=== PATIENT | male | born 1990 | race African-American/Black ===

== ENCOUNTER 2016-11-30 13:03 | Inpatient (IN) | payer SELFPAY ==
[~2016-11-30] VITALS: Ht 167.6 cm; Wt 59.4 kg
[2016-11-30] MEDS ORDERED: VNTHFA/IN INH (14:09)
[2016-11-30 14:39] LABS: BASO % 0.1 %; BASO ABS # 0.02 K/uL (0-0.2); COMPLETE YES; HEMATOCRIT 55.7 % (42-52); IG% 0.4 %; LYMPH % 12.4 %; LYMPH ABS # 2.25 K/uL (1.2-3.4); MEAN CELL VOLUME 87.9 fL (80-100); MEAN CORPUSCULAR HEMOGLOBIN 31.9 pg (25-34); MEAN CORPUSCULAR HGB CONC 36.3 g/dl (32-36); MEAN PLATELET VOLUME 11.3 fL (7.4-10.4); MONO % 9.9 %; NEUT % 77.2 %; PLATELET COUNT 322 K/uL (130-400); RED BLOOD COUNT 6.34 M/uL (4.7-6.1); WHITE BLOOD COUNT 18.17 K/uL (4.8-10.8)
[2016-11-30] MEDS ORDERED: ONDANSETRON INJ 2 MG/ML 2 ML VIAL IV STA (14:45)
[2016-11-30] MEDS ORDERED: KETOROLAC TROMETHAMINE 30 MG/ML VIAL IV STA (14:45)
[2016-11-30] MEDS ORDERED: SODIUM CHLORIDE 0.9% 1000ML 2,000 ML IV STA (14:45)
[2016-11-30 14:48] LABS: BUN/CREATININE RATIO 9.9 (10-20); CALCIUM 10.3 mg/dl (8.5-10.1); CREATININE 3.8 mg/dl (0.60-1.40); POTASSIUM 3.4 mmol/L (3.5-5.1)
--- NOTE | 2016-11-30 16:02 | DIAGNOSTIC IMAGING REPORT ---
ABDOMEN 2VIEW W/PA CHEST RTN CLINICAL HISTORY: abd pain pain COMPARISON STUDY: No previous studies for comparison. FINDINGS: The soft tissues, psoas shadows, renal outlines and intestinal gas pattern appear normal. There is no evidence for bowel obstruction. There is no evidence for free intraperitoneal air. No abnormal abdominal calcifications are seen. A frontal view of the chest was performed and is unremarkable. There are several pelvic vascular calcifications. IMPRESSION: Normal study. Electronically signed by: Lyle Roberto M.D. 11/30/2016 4:01 PM Dictated Date/Time: 11/30/2016 4:00 PM
[2016-11-30 16:39] LABS: MANUAL MICROSCOPIC REQUIRED? YES; URINE APPEARANCE CLEAR (CLEAR); URINE BILIRUBIN NEG (NEG); URINE COLOR YELLOW; URINE NITRITE NEG (NEG); URINE PH 5.5 (4.5-7.5); URINE SPECIFIC GRAVITY >= 1.030 (1.000-1.030); UROBILINOGEN NEG (NEG)
[2016-11-30 16:46] LABS: REVIEW REQ? NO
[2016-11-30 16:54] LABS: URINE BACTERIA 1+ (NEG)
[2016-11-30 16:55] LABS: ZZUR CULT IF INDIC CLEAN CATCH YES
[2016-11-30] MEDS ORDERED: ONDANSETRON INJ 2 MG/ML 2 ML VIAL IV PRN (17:00)
[2016-11-30] MEDS ORDERED: ALBUTEROL HFA 8 GM INHALER INH PRN (17:00)
[2016-11-30 17:50] VITALS: O2SAT 98; Ht 167.6 cm; Wt 59.4 kg
--- NOTE | 2016-11-30 18:00 | History and Physical ---
History & Physical Date & Time of Service: Nov 30, 2016 at 17:47 Chief Complaint: Vomiting Primary Care Physician: No Doctor, Assigned History of Present Illness Source: patient, hospital records Patient is a 26 y/o male with a h/o mild intermittent asthma who presents for evaluation of vomiting. Patient notes vomiting for the past 3 days, stating that he has been unable to keep anything down. He did have some abdominal cramping at the onset of symptoms, but denies any abdominal pain currently. He denies any hematemesis or diarrhea. He denies any dysuria or gross hematuria. He notes that his girlfriend's children had been vomiting. Patient denies any h/ o kidney disease or other medical problems. Patient denies NSAID usage. Patient does smoke daily marijuana but denies other drug use. In the ED, labs were notable for a creatinine of 3.8 and microscopic hematuria. Patient was given IVF's and Zofran. Past Medical/Surgical History Medical Problems: (1) Asthma Status: Chronic Family History Patient reports no known family medical history. Social History Smoking Status: Current Every Day Smoker (1 ppd) Drug Use: marijuana Marital Status: in relationship Allergies Coded Allergies: No Known Allergies (Unverified , 11/30/16) Home Medications Scheduled PRN Albuterol Hfa (Ventolin Hfa), 2-4 PUFFS INH Q6H PRN for SOB/Wheezing Review of Systems Constitutional- +fevers and chills Eyes- denies sudden vision changes ENT- denies sore throat or congestion Pulmonary- denies SOB or cough Cardiac- denies chest pain or palpitations GI- denies abdominal pain, diarrhea; +nausea and vomiting - denies dysuria or hematuria Musculoskeletal- denies joint pain or swelling Dermatologic- denies rash or bruising Neuro- denies weakness, numbness or tingling Psych- denies depression or anxiety . Physical Exam Vital Signs Date Time Temp Pulse Resp B/P Pulse Ox O2 Delivery O2 Flow Rate FiO2 11/30/16 17:44 79 16 143/85 98 Room Air 11/30/16 15:46 84 18 132/92 97 Room Air 11/30/16 13:12 36.9 112 18 122/90 97 Room Air General- awake; alert; NAD Eyes- EOMI; no scleral icterus ENT- dry mucous membranes Neck- no stridor; trachea midline Lungs- CTA bilaterally; no wheezes/crackles Heart- RRR; no m/r/g Abdomen- soft; NTND; nBS Back- no gross abnormalities Extremities- no c/c/e; no deformity Neuro- no focal deficits Skin- no appreciable rash or bruise . Diagnostics Laboratory Results Results Past 24 Hours Test 11/30/16 14:14 11/30/16 16:30 Range/Units White Blood Count 18.17 4.8-10.8 K/uL Red Blood Count 6.34 4.7-6.1 M/uL Hemoglobin 20.2 14.0-18.0 g/dL Hematocrit 55.7 42-52 % Mean Corpuscular Volume 87.9 80-100 fL Mean Corpuscular Hemoglobin 31.9 25-34 pg Mean Corpuscular Hemoglobin Concent 36.3 32-36 g/dl Platelet Count 322 130-400 K/uL Mean Platelet Volume 11.3 7.4-10.4 fL Neutrophils (%) (Auto) 77.2 % Lymphocytes (%) (Auto) 12.4 % Monocytes (%) (Auto) 9.9 % Eosinophils (%) (Auto) 0.0 % Basophils (%) (Auto) 0.1 % Neutrophils # (Auto) 14.02 1.4-6.5 K/uL Lymphocytes # (Auto) 2.25 1.2-3.4 K/uL Monocytes # (Auto) 1.80 0.11-0.59 K/uL Eosinophils # (Auto) 0.00 0-0.5 K/uL Basophils # (Auto) 0.02 0-0.2 K/uL RDW Standard Deviation 42.8 36.4-46.3 fL RDW Coefficient of Variation 13.3 11.5-14.5 % Immature Granulocyte % (Auto) 0.4 % Immature Granulocyte # (Auto) 0.08 0.00-0.02 K/uL Sodium Level 138 136-145 mmol/L Potassium Level 3.4 3.5-5.1 mmol/L Chloride Level 94 98-107 mmol/L Carbon Dioxide Level 27 21-32 mmol/L Anion Gap 17.0 3-11 mmol/L Blood Urea Nitrogen 38 7-18 mg/dl Creatinine 3.80 0.60-1.40 mg/dl Est Creatinine Clear Calc Drug Dose 24.8 ml/min Estimated GFR () 23.9 Estimated GFR (Non- 20.6 BUN/Creatinine Ratio 9.9 10-20 Random Glucose 121 70-99 mg/dl Calcium Level 10.3 8.5-10.1 mg/dl Total Bilirubin 1.2 0.2-1 mg/dl Direct Bilirubin 0.3 0-0.2 mg/dl Aspartate Amino Transf (AST/SGOT) 26 15-37 U/L Alanine Aminotransferase (ALT/SGPT) 30 12-78 U/L Alkaline Phosphatase 120 45-117 U/L Total Protein 10.8 6.4-8.2 gm/dl Albumin 5.6 3.4-5.0 gm/dl Lipase 102 73-393 U/L Urine Color YELLOW Urine Appearance CLEAR CLEAR Urine pH 5.5 4.5-7.5 Urine Specific [place] >= 1.030 1.000-1.030 Urine Protein 1+ NEG Urine Glucose (UA) NEG NEG Urine Ketones NEG NEG Urine Occult Blood 3+ NEG Urine Nitrite NEG NEG Urine Bilirubin NEG NEG Urine Urobilinogen NEG NEG Urine Leukocyte Esterase NEG NEG Urine RBC 10-30 0-4 /hpf Urine WBC 1-5 0-5 /hpf Urine Epithelial Cells 5-10 0-5 /lpf Urine Calcium Oxalate Crystals PRESENT NONE PRSENT Urine Bacteria 1+ NEG Urine Hyaline Casts 10-30 0-5 /lpf Microbiology Results 11/30/16 Urine Culture, Received Pending Diagnostic Radiology Abdominal xray IMPRESSION: Normal study. Impression Assessment and Plan Patient is a 26 y/o male who presents for evaluation of nausea, vomiting x3 days and found to have CHELA. 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 VTE Prophylaxis VTE Risk Assessment Done? Y/N: Yes Risk Level: Low
[2016-11-30 18:10] VITALS: BP 135/83; PULSE 83; TEMP 36.4; O2SAT 99
--- NOTE | 2016-11-30 18:11 | EMERGENCY ROOM VISIT NOTE ---
History Report prepared by Nikia: Alexei Powell Under the Supervision of: Dr. Gerson Sinclair D.O. First contact with patient: 14:31 Chief Complaint: VOMITING Stated Complaint: VOMITING Nursing Triage Summary: Patient c/o of abdominal pain, nausea and vomiting x 3 days. "I've been feeling dehydrated." History of Present Illness The patient is a 26 year old male who presents to the Emergency Room with complaints of intermittent vomiting that began 2 days ago. The patient cannot remember how many episodes of emesis he has had. He states that it was "too much to count". He was up all night vomiting as well. He cannot keep anything in his stomach. He has been vomiting yellow liquid recently. He is also experiencing abdominal cramping and some shortness of breath secondary to pain. He denies any sick contacts. His last bowel movement was 3 days ago. He has a past medical history of asthma. Patient denies headache, change in vision, fevers, chest pain, diarrhea, pain with urination, and melena. He denies any previous abdominal surgeries. Source of History: patient Onset: 2 days ago Position: other (GI) Symptom Intensity: moderate Quality: other (Vomiting) Timing: intermittent Associated Symptoms: + SOB, + abdominal pain, + nausea, No chest pain, No cough, No diarrhea, No fevers, No headache, No melena, No sorethroat, No urinary symptoms Review of Systems See HPI for pertinent positives & negatives. A total of 10 systems reviewed and were otherwise negative. Past Medical & Surgical Medical Problems: (1) CHELA (acute kidney injury) (2) Asthma Family History Patient reports no known family medical history. Social History Smoking Status: Current Every Day Smoker Smokeless Tobacco Use: No Drug Use: none Marital Status: single Current/Historical Medications Scheduled PRN Albuterol Hfa (Ventolin Hfa), 2-4 PUFFS INH Q6H PRN for SOB/Wheezing Allergies Coded Allergies: No Known Allergies (Unverified , 11/30/16) Physical Exam Vital Signs Date Time Temp Pulse Resp B/P Pulse Ox O2 Delivery O2 Flow Rate FiO2 11/30/16 17:50 98 Room Air 11/30/16 17:44 79 16 143/85 98 Room Air 11/30/16 15:46 84 18 132/92 97 Room Air 11/30/16 13:12 36.9 112 18 122/90 97 Room Air Physical Exam GENERAL: Sitting up in bed, disheveled, alert, well appearing, well nourished, no distress, non-toxic EYE EXAM: normal conjunctiva, PERRL and EOM's grossly intact OROPHARYNX: no exudate, no erythema, lips, buccal mucosa, and tongue normal and mucous membranes are dry NECK: supple, no nuchal rigidity, no adenopathy, non-tender LUNGS: Clear to auscultation. Normal chest wall mechanics HEART: Tachycardic, no murmurs, S1 normal and S2 normal ABDOMEN: abdomen soft, non-tender, normo-active bowel sounds, no masses, no rebound or guarding. BACK: Back is symmetrical on inspection and there is no deformity, no midline tenderness, no CVA tenderness. SKIN: no rashes and no bruising UPPER EXTREMITIES: upper extremities are grossly normal. LOWER EXTREMITIES: No pitting edema. NEURO EXAM: Normal sensorium, cranial nerves II-XII grossly intact, normal speech, no gross weakness of arms, no gross weakness of legs. Medical Decision & Procedures ER Provider Diagnostic Interpretation: Xray results per the radiologist and my interpretation. Other results have been interpreted by the radiologist and reviewed by me. ABDOMEN 2VIEW W/PA CHEST RTN CLINICAL HISTORY: abd pain pain COMPARISON STUDY: No previous studies for comparison. FINDINGS: The soft tissues, psoas shadows, renal outlines and intestinal gas pattern appear normal. There is no evidence for bowel obstruction. There is no evidence for free intraperitoneal air. No abnormal abdominal calcifications are seen. A frontal view of the chest was performed and is unremarkable. There are several pelvic vascular calcifications. IMPRESSION: Normal study. Electronically signed by: Lyle Roberto M.D. 11/30/2016 4:01 PM Dictated Date/Time: 11/30/2016 4:00 PM Laboratory Results 11/30/16 14:14 Red Blood Count 6.34, Mean Corpuscular Volume 87.9, Mean Corpuscular Hemoglobin 31.9, Mean Corpuscular Hemoglobin Concent 36.3, Mean Platelet Volume 11.3, Neutrophils (%) (Auto) 77.2, Lymphocytes (%) (Auto) 12.4, Monocytes (%) (Auto) 9.9, Eosinophils (%) (Auto) 0.0, Basophils (%) (Auto) 0.1, Neutrophils # (Auto) 14.02, Lymphocytes # (Auto) 2.25, Monocytes # (Auto) 1.80, Eosinophils # (Auto) 0.00, Basophils # (Auto) 0.02 11/30/16 14:14 Test 11/30/16 14:14 11/30/16 16:30 White Blood Count 18.17 K/uL (4.8-10.8) Red Blood Count 6.34 M/uL (4.7-6.1) Hemoglobin 20.2 g/dL (14.0-18.0) Hematocrit 55.7 % (42-52) Mean Corpuscular Volume 87.9 fL (80-100) Mean Corpuscular Hemoglobin 31.9 pg (25-34) Mean Corpuscular Hemoglobin Concent 36.3 g/dl (32-36) Platelet Count 322 K/uL (130-400) Mean Platelet Volume 11.3 fL (7.4-10.4) Neutrophils (%) (Auto) 77.2 % Lymphocytes (%) (Auto) 12.4 % Monocytes (%) (Auto) 9.9 % Eosinophils (%) (Auto) 0.0 % Basophils (%) (Auto) 0.1 % Neutrophils # (Auto) 14.02 K/uL (1.4-6.5) Lymphocytes # (Auto) 2.25 K/uL (1.2-3.4) Monocytes # (Auto) 1.80 K/uL (0.11-0.59) Eosinophils # (Auto) 0.00 K/uL (0-0.5) Basophils # (Auto) 0.02 K/uL (0-0.2) RDW Standard Deviation 42.8 fL (36.4-46.3) RDW Coefficient of Variation 13.3 % (11.5-14.5) Immature Granulocyte % (Auto) 0.4 % Immature Granulocyte # (Auto) 0.08 K/uL (0.00-0.02) Anion Gap 17.0 mmol/L (3-11) Est Creatinine Clear Calc Drug Dose 24.8 ml/min Estimated GFR () 23.9 Estimated GFR (Non- 20.6 BUN/Creatinine Ratio 9.9 (10-20) Calcium Level 10.3 mg/dl (8.5-10.1) Total Bilirubin 1.2 mg/dl (0.2-1) Direct Bilirubin 0.3 mg/dl (0-0.2) Aspartate Amino Transf (AST/SGOT) 26 U/L (15-37) Alanine Aminotransferase (ALT/SGPT) 30 U/L (12-78) Alkaline Phosphatase 120 U/L (45-117) Total Protein 10.8 gm/dl (6.4-8.2) Albumin 5.6 gm/dl (3.4-5.0) Lipase 102 U/L (73-393) Urine Color YELLOW Urine Appearance CLEAR (CLEAR) Urine pH 5.5 (4.5-7.5) Urine Specific [place] >= 1.030 (1.000-1.030) Urine Protein 1+ (NEG) Urine Glucose (UA) NEG (NEG) Urine Ketones NEG (NEG) Urine Occult Blood 3+ (NEG) Urine Nitrite NEG (NEG) Urine Bilirubin NEG (NEG) Urine Urobilinogen NEG (NEG) Urine Leukocyte Esterase NEG (NEG) Urine RBC 10-30 /hpf (0-4) Urine WBC 1-5 /hpf (0-5) Urine Epithelial Cells 5-10 /lpf (0-5) Urine Calcium Oxalate Crystals PRESENT (NONE PRSENT) Urine Bacteria 1+ (NEG) Urine Hyaline Casts 10-30 /lpf (0-5) Laboratory results per my review. Medications Administered Medications (Trade) Dose Ordered Sig/Ginger Route Start Time Stop Time Status Last Admin Dose Admin Sodium Chloride (Nss 1000ml) 2,000 ml @ 999 mls/hr Q2H1M STAT IV 11/30/16 14:45 11/30/16 16:45 DC 11/30/16 14:57 999 MLS/HR Ondansetron HCl (Zofran Inj) 4 mg NOW STAT IV 11/30/16 14:45 11/30/16 14:46 DC 11/30/16 14:57 4 MG ED Course ED COURSE: Vital signs were reviewed and showed tachycardia The patients medical record was reviewed The above diagnostic studies were performed and reviewed. ED treatments and interventions as stated above. 1431: The patient was evaluated in room A10. A complete history and physical examination was performed. 1445: Ordered Toradol Inj 30 mg IV, Zofran Inj 4 mg IV, Sodium Chloride 2000 ml @ 999 mls/hr IV 1630: Upon reevaluation, the patient is resting.I discussed my findings with the patient and he understands and agrees with the treatment plan. Based on the patients age, coexisting illnesses, exam and lab findings the decision to treat as an inpatient was made. The patient remained stable while under my care. The patient will be evaluated by Dr. Toney, for further management. Medical Decision Differential diagnoses includes but is not limited to gastritis, peptic ulcer disease, GERD, gallbladder disease, pancreatitis, small bowel obstruction, acute coronary syndrome, pericarditis, ischemic bowel, irritable bowel disease, irritable bowel syndrome, appendicitis, diverticulitis, malignancy, hernia, urinary tract infection, torsion, perforation, trauma, infectious. Patient is a 26-year-old male who presents the ER with persistent vomiting for the past 3 days. He has been unable to keep anything down. He has crampy abdominal pain. Last bowel movement was 3 days ago. No previous abdominal surgeries. His abdominal exam is benign. Vitals show a mild tachycardia. Labs were remarkable for a leukocytosis of 18,000 which I favor secondary to the vomiting with his benign abdomen. He has no previous medical issues and with his creatinine of 3.8 elevated BUN I do believe this is secondary to dehydration. He was given 2 L normal saline along with Zofran. No vomiting while in the ER. Obstruction series was unremarkable. LFTs were fairly unremarkable. T bili was only slightly elevated 1.2. Direct bili was unremarkable. Patient was updated bedside and admitted to internal medicine with acute kidney injury likely secondary to a gastroenteritis. Consults Time Called: 1555 Consulting Physician: Dr. Toney Hospitalist Returned Call: [phone] She will be evaluating the patient for further management. Impression Primary Impression: Acute kidney injury Additional Impressions: Acute gastroenteritis Leukocytosis Scribe Attestation The scribe's documentation has been prepared under my direction and personally reviewed by me in its entirety. I confirm that the note above accurately reflects all work, treatment, procedures, and medical decision making performed by me. Departure Information Dispostion Being Evaluated By Hospitalist Referrals No Doctor, Assigned (PCP) Patient Instructions My [facility] Problem Qualifiers Additional Impressions: Leukocytosis Leukocytosis type: unspecified Qualified Codes: D72.829 - Elevated white blood cell count, unspecified
[2016-11-30] MEDS: SODIUM CHLORIDE 0.9% 1000ML 1,000 ML IV SCH (18:30)
[2016-12-01] MEDS: SODIUM CHLORIDE 0.9% 1000ML 1,000 ML IV SCH ×3 (00:04→12:00)
[2016-12-01 00:38] VITALS: BP 118/67; PULSE 65; TEMP 37.4; O2SAT 99
[2016-12-01 06:40] LABS: BUN/CREATININE RATIO 17.8 (10-20); CREATININE 1.2 mg/dl (0.60-1.40); POTASSIUM 3.4 mmol/L (3.5-5.1)
[2016-12-01 06:41] LABS: CALCIUM 8.5 mg/dl (8.5-10.1)
[2016-12-01 07:17] LABS: HEMATOCRIT 42.6 % (42-52); MEAN CELL VOLUME 89.3 fL (80-100); MEAN CORPUSCULAR HEMOGLOBIN 30.8 pg (25-34); MEAN CORPUSCULAR HGB CONC 34.5 g/dl (32-36); MEAN PLATELET VOLUME 10.8 fL (7.4-10.4); PLATELET COUNT 246 K/uL (130-400); RED BLOOD COUNT 4.77 M/uL (4.7-6.1); WHITE BLOOD COUNT 13.49 K/uL (4.8-10.8)
[2016-12-01 07:44] VITALS: BP 114/63; PULSE 56; TEMP 37.1; O2SAT 100
[2016-12-01] MEDS ORDERED: POTASSIUM CHLORIDE 10 MEQ TABCR PO STA (07:56)
[2016-12-01 08:00] VITALS: O2SAT 100
[2016-12-01 09:09] VITALS: O2SAT 100
--- NOTE | 2016-12-01 10:20 | Progress Note ---
Subjective Date of Service: Dec 01, 2016. Subjective Pt evaluation today including: conversation w/ patient, physical exam, lab review, review of studies, review of inpatient medication list Saw/examined the patient in room 259 He is doing better than yesterday Less nausea/vomiting, no abdominal pain Problem List Medical Problems: (1) Acute gastroenteritis Status: Acute (2) Acute kidney injury Status: Acute (3) Leukocytosis Status: Acute Review of Systems Constitutional: No chills, No fever Respiratory: No shortness of breath Cardiac: No chest pain Abdomen: + nausea (improving), + vomiting (improving), No GI bleeding, No constipation, No diarrhea, No pain Male : No dysuria, No hematuria, No urinary frequency Medications Current Inpatient Medications Medications (Trade) Dose Ordered Sig/Ginger Route Start Time Stop Time Status Last Admin Dose Admin Ondansetron HCl 4 mg 4 mg Q6H PRN IV 11/30/16 17:00 12/30/16 16:59 Sodium Chloride (Nss 1000ml) 1,000 ml @ 150 mls/hr Q6H40M IV 11/30/16 17:00 12/30/16 16:59 12/01/16 06:32 150 MLS/HR Albuterol (Ventolin Hfa Inhaler) 2 puffs Q6H PRN INH 11/30/16 17:00 12/30/16 16:59 Objective Vital Signs Date Time Temp Pulse Resp B/P Pulse Ox O2 Delivery O2 Flow Rate FiO2 12/01/16 09:09 100 Room Air 12/01/16 07:44 37.1 56 12 114/63 100 Room Air 12/01/16 00:38 37.4 65 16 118/67 99 Room Air 12/01/16 00:00 Room Air 11/30/16 20:00 Room Air 11/30/16 18:10 36.4 83 18 135/83 99 Room Air 11/30/16 17:50 98 Room Air 11/30/16 17:44 79 16 143/85 98 Room Air 11/30/16 15:46 84 18 132/92 97 Room Air 11/30/16 13:12 36.9 112 18 122/90 97 Room Air Physical Exam General Appearance: no apparent distress Respiratory/Chest: lungs clear, normal breath sounds, no respiratory distress, no accessory muscle use Cardiovascular: regular rate, rhythm, no edema, no murmur Abdomen: normal bowel sounds, non tender, soft Laboratory Results Last 24 Hours Test 11/30/16 14:14 11/30/16 16:30 12/01/16 05:34 White Blood Count 18.17 K/uL 13.49 K/uL Red Blood Count 6.34 M/uL 4.77 M/uL Hemoglobin 20.2 g/dL 14.7 g/dL Hematocrit 55.7 % 42.6 % Mean Corpuscular Volume 87.9 fL 89.3 fL Mean Corpuscular Hemoglobin 31.9 pg 30.8 pg Mean Corpuscular Hemoglobin Concent 36.3 g/dl 34.5 g/dl Platelet Count 322 K/uL 246 K/uL Mean Platelet Volume 11.3 fL 10.8 fL Neutrophils (%) (Auto) 77.2 % Lymphocytes (%) (Auto) 12.4 % Monocytes (%) (Auto) 9.9 % Eosinophils (%) (Auto) 0.0 % Basophils (%) (Auto) 0.1 % Neutrophils # (Auto) 14.02 K/uL Lymphocytes # (Auto) 2.25 K/uL Monocytes # (Auto) 1.80 K/uL Eosinophils # (Auto) 0.00 K/uL Basophils # (Auto) 0.02 K/uL RDW Standard Deviation 42.8 fL 42.9 fL RDW Coefficient of Variation 13.3 % 13.1 % Immature Granulocyte % (Auto) 0.4 % Immature Granulocyte # (Auto) 0.08 K/uL Sodium Level 138 mmol/L 142 mmol/L Potassium Level 3.4 mmol/L 3.4 mmol/L Chloride Level 94 mmol/L 105 mmol/L Carbon Dioxide Level 27 mmol/L 30 mmol/L Anion Gap 17.0 mmol/L 7.0 mmol/L Blood Urea Nitrogen 38 mg/dl 21 mg/dl Creatinine 3.80 mg/dl 1.20 mg/dl Est Creatinine Clear Calc Drug Dose 24.8 ml/min 78.4 ml/min Estimated GFR () 23.9 96.1 Estimated GFR (Non- 20.6 83.0 BUN/Creatinine Ratio 9.9 17.8 Random Glucose 121 mg/dl 83 mg/dl Calcium Level 10.3 mg/dl 8.5 mg/dl Total Bilirubin 1.2 mg/dl Direct Bilirubin 0.3 mg/dl Aspartate Amino Transf (AST/SGOT) 26 U/L Alanine Aminotransferase (ALT/SGPT) 30 U/L Alkaline Phosphatase 120 U/L Total Protein 10.8 gm/dl Albumin 5.6 gm/dl Lipase 102 U/L Urine Color YELLOW Urine Appearance CLEAR Urine pH 5.5 Urine Specific [place] >= 1.030 Urine Protein 1+ Urine Glucose (UA) NEG Urine Ketones NEG Urine Occult Blood 3+ Urine Nitrite NEG Urine Bilirubin NEG Urine Urobilinogen NEG Urine Leukocyte Esterase NEG Urine RBC 10-30 /hpf Urine WBC 1-5 /hpf Urine Epithelial Cells 5-10 /lpf Urine Calcium Oxalate Crystals PRESENT Urine Bacteria 1+ Urine Hyaline Casts 10-30 /lpf Assessment and Plan This is a 26 year old male with PMH of asthma presented with nausea/vomiting, acute kidney injury Acute Kidney Injury secondary to Dehydration patient presented with nausea/vomiting secondary to dehydration, developed acute kidney injury with creat up to 3.8 with IVFs creat down to 1.2 patient tolerated clears this AM will advance for lunch to fulls and then regular diet for dinner can taper down IVFs later today if feeling well after dinner, we can discharge patient home Nausea/Vomiting likely secondary to viral gastroenteritis start with clears; advance as tolerated Full liquid for lunch; regular diet for dinner Leukocytosis/Elevated Hemoglobin this was likely due to severe dehydration given IVFs and this has come down considerably likely not an infectious process Intermittent Asthma in the setting of Tobacco Use continue albuterol as needed tobacco cessation counseling provided Marijuana Use patient smokes marijuana daily nausea/vomiting possibly related to marijuana use DVT ppx ambulation FULL CODE
[2016-12-01 15:59] VITALS: BP 131/78; PULSE 82; TEMP 36.4; O2SAT 100
--- NOTE | 2016-12-01 16:13 | Discharge Instructions ---
Discharge Instructions Date of Service Dec 01, 2016. Admission Reason for Admission: [place] (Acute Kidney Injury) Discharge Discharge Diagnosis / Problem: Acute Kidney Injury, severe dehydration, viral gastorenteritis Discharge Goals Goal(s): Decrease discomfort, Improve function Activity Recommendations Activity Limitations: resume your previous activity . Instructions / Follow-Up Instructions / Follow-Up Please find a primary care physician in [place] and follow-up with them You should have repeat blood work and urinalysis once you find a new doctor Current Hospital Diet Patient's current hospital diet: Regular Diet Discharge Diet Recommended Diet: Regular Diet Pending Studies Studies pending at discharge: no Medical Emergencies . Who to Call and When: Medical Emergencies: If at any time you feel your situation is an emergency, please call 911 immediately. . Non-Emergent Contact Non-Emergency issues call your: Primary Care Provider . . "Provider Documentation" section prepared by Clarke Centeno. VTE Core Measure Inpt VTE Proph given/why not?: Treatment not indicated
--- NOTE | 2016-12-01 16:14 | Discharge Summary ---
Discharge Summary Date of Service Dec 01, 2016. Discharge Summary Admission Date: Nov 30, 2016 at 16:58 Discharge Date: Dec 01, 2016 Discharge Disposition: Home Principal Diagnosis: Acute Kidney Injury Severe dehydration Viral Gastroenteritis Medication Reconciliation Continued Medications: Albuterol Hfa (Ventolin Hfa) 200 Puffs/44612 Mcg Aers 2-4 PUFFS INH Q6H PRN for SOB/Wheezing, #1 INHALER Admission Information HPI (per Admitting provider): Patient is a 26 y/o male with a h/o mild intermittent asthma who presents for evaluation of vomiting. Patient notes vomiting for the past 3 days, stating that he has been unable to keep anything down. He did have some abdominal cramping at the onset of symptoms, but denies any abdominal pain currently. He denies any hematemesis or diarrhea. He denies any dysuria or gross hematuria. He notes that his girlfriend's children had been vomiting. Patient denies any h/ o kidney disease or other medical problems. Patient denies NSAID usage. Patient does smoke daily marijuana but denies other drug use. In the ED, labs were notable for a creatinine of 3.8 and microscopic hematuria. Patient was given IVF's and Zofran. Physical Exam (per Admitting): General- awake; alert; NAD Eyes- EOMI; no scleral icterus ENT- dry mucous membranes Neck- no stridor; trachea midline Lungs- CTA bilaterally; no wheezes/crackles Heart- RRR; no m/r/g Abdomen- soft; NTND; nBS Back- no gross abnormalities Extremities- no c/c/e; no deformity Neuro- no focal deficits Skin- no appreciable rash or bruise . Hospital Course This is a 26 year old male with PMH of asthma presented with nausea/vomiting, acute kidney injury Acute Kidney Injury secondary to Dehydration patient presented with nausea/vomiting secondary to dehydration, developed acute kidney injury with creat up to 3.8 with IVFs creat down to 1.2 patient tolerated clears this AM will advance for lunch to fulls and then regular diet for dinner can taper down IVFs later today if feeling well after dinner, we can discharge patient home Nausea/Vomiting likely secondary to viral gastroenteritis start with clears; advance as tolerated Full liquid for lunch; regular diet for dinner Leukocytosis/Elevated Hemoglobin this was likely due to severe dehydration given IVFs and this has come down considerably likely not an infectious process Intermittent Asthma in the setting of Tobacco Use continue albuterol as needed tobacco cessation counseling provided Marijuana Use patient smokes marijuana daily nausea/vomiting possibly related to marijuana use DVT ppx ambulation FULL CODE Total time spent on discharge = 20 minutes This includes examination of the patient, discharge planning, medication reconciliation, and communication with other providers. Discharge Instructions Please find a primary care physician in [place] and follow-up with them You should have repeat blood work and urinalysis once you find a new doctor
[2016-12-01 16:17] VITALS: BP 131/78; PULSE 82; TEMP 36.4; O2SAT 100
== END 2016-12-01 16:47 | disposition home or self-care (01) | DRG 392 ==
LOC: ENRESERVDT → ENRESERVTM → C.EDB 13:05 → C.MS2W 16:58
PROVIDERS: ADMIT Internal Medicine; ATTEND Family Medicine
DX: A08.4 Viral intestinal infection, unspecified (principal); N17.9 Acute kidney failure, unspecified; J45.20 Mild intermittent asthma, uncomplicated; F17.210 Nicotine dependence, cigarettes, uncomplicated; F12.90 Cannabis use, unspecified, uncomplicated; E86.0 Dehydration